=== PATIENT | male | born 1930 | race Caucasian/White ===

== ENCOUNTER 2020-04-20 18:07 | Emergency (ER) | payer OTHER, MEDICAID ==
[~2020-04-20] VITALS: Ht 160 cm; Wt 60.0 kg
[~2020-04-20 18:07] MED LIST: AMLO10TA80 PO; METF-414 PO; SIMV-46 PO; TAMS0.4C31 PO
[2020-04-20] MEDS ORDERED: ACETAMINOPHEN 325MG TABLET PO ONE (18:45)
[2020-04-20 20:16] VITALS: BP 137/85
== END 2020-04-20 20:24 | disposition home or self-care (01) ==
LOC: ER 18:30
DX: S02.2XXA Fracture of nasal bones, initial encounter for closed fracture (principal); W01.198A Fall on same level from slipping, tripping and stumbling with subsequent striking against other object, initial encounter; Y93.01 Activity, walking, marching and hiking; Y92.480 Sidewalk as the place of occurrence of the external cause
CPT/HCPCS: 70486; 93005; 99285